=== PATIENT | female | born 1935 | race Caucasian/White ===

== ENCOUNTER 2024-08-08 10:50 | Outpatient (AMB) | payer OTHER, MEDICAID, SELFPAY ==
--- NOTE | 2024-08-08 11:22 | HO.SPINEOV ---
Intake Visit Reasons: low back pain Intake Note: Ms. Cornejo is here today c/o Low back pain. [employer] Required: No Allergies No Known Allergies Allergy (Verified 08/08/24 11:23) Assessment & Plan Assessment & Plan (1) Neck pain of over 3 months duration: Code(s): M54.2 - Cervicalgia Category: Medical Plan: Dear colleague Thank you for referring Aisha Cornejo to the office today with a chief complaint of neck pain and back pain. 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 Over the last 6 months she is experiencing progressive neck pain that is located on the base of her neck without radiation into her arms. The pain is worse when she abducts her right arm or with activity. Second complaint is back pain in the lumbar region that is worse in the morning and increases with activity. She denies radiation down her legs. She denies a relationship with walking or standing. No numbness or weakness in the extremities. No conservative treatments have tried. 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 Physical Exam: Pleasant female. She is able to move her neck in all directions without difficulty. There is pain on palpation over the left side of her neck. There is also pain on palpation of the lumbar region. Straight leg raise is negative. No neurological deficits for motor sensation or reflexes. Radiological Studies: An x-ray of the cervical spine shows mild degenerative changes. an x-ray of the lumbar spine shows osteopenia and degenerative changes. The hardware is in place. Impression/Plan: This 88-year-old female is suffering from neck pain and low back pain without radiculopathy. She has not tried any conservative measurements. I will refer to physical therapy in [place]. I spent 35 minutes in his consult to review imaging and to discuss plan of care Thank you for allowing me to participate in your patients care. Shakir Marin MD, PhD Spine Fellowship Trained Neurosurgeon Director, [facility] (2) Back pain with history of spinal surgery: Code(s): M54.9 - Dorsalgia, unspecified; Z98.890 - Other specified postprocedural states Category: Medical Plan: s Orders: Orders PT Evaluation and Treatment Today M54.2 - Cervicalgia, M54.9 - Dorsalgia, unspecified, Z98.890 - Other specified postprocedural states XR cervical spine 2V Today M54.2 - Cervicalgia XR lumbar spine 4V min Today M54.9 - Dorsalgia, unspecified, Z98.890 - Other specified postprocedural states Coding Level of Care Code New Pt Level 3 (45687) Diagnoses Neck pain of over 3 months duration M54.2 Back pain with history of spinal surgery M54.9; Z98.890
== END 2024-08-08 12:08 | disposition home or self-care (01) ==
PROVIDERS: Visit Provider Neurological Surgery
DX: M54.2 Cervicalgia (principal); M54.9 Dorsalgia, unspecified; Z98.890 Other specified postprocedural states
CPT/HCPCS: 99203

== ENCOUNTER 2024-08-08 10:50 | Outpatient (REF) | payer OTHER, SELFPAY ==
--- NOTE | ~2024-08-08 | XR_ITS ---
EXAMINATION: XR CERVICAL SPINE 2 VIEWS CLINICAL INFORMATION: Cervicalgia M54.2. COMPARISON: None available TECHNIQUE: Two views of the cervical spine were obtained. FINDINGS: Prevertebral soft tissue calcifications are present at the level of C3/4. No compression fractures or subluxations are identified. Lateral axial joint is not well visualized except on the lateral view. Multilevel degenerative changes are present, worst at C4-5 where there is approximately 2 mm anterolisthesis. Neural foramina cannot be evaluated due to lack of oblique views. No endplate changes are seen. The prevertebral soft tissues are normal. The foramina are patent. XR/XR cervical spine 2V IMPRESSION: Multilevel degenerative changes, poorly assessed on this study due to lack of oblique views. Minimal 2 mm anterolisthesis of C4 on C5. Prevertebral soft tissue calcifications at C3-4. Electronically signed by: Monroe Carrillo DO 10/09/2024 11:36 AM WILBER
--- NOTE | ~2024-08-08 | XR_ITS ---
EXAMINATION: XR LUMBAR SPINE 4 VIEWS CLINICAL INFORMATION: Dorsalgia, unspecified M54.9. COMPARISON: None TECHNIQUE: 4 views of lumbar spine were obtained. FINDINGS: 5 nonrib-bearing lumbar vertebral bodies. Bones are osteopenic. Grade 1 anterolisthesis of L4 and L5 with bilateral transpedicular screws. No perihardware lucency to suggest loosening. Multilevel facet arthropathy noted from L3 to L5. Extensive vascular calcifications. No compression deformity XR/XR lumbar spine 4V min IMPRESSION: Grade 1 anterolisthesis of L4 and L5. Bilateral transpedicular screws at L5 without complication. Multilevel facet arthropathy. Electronically signed by: Monroe Carrillo DO 10/09/2024 11:38 AM EST
== END 2024-08-08 10:51 | disposition home or self-care (01) ==
LOC: HO.HOSX 10:50
PROVIDERS: Visit Provider Neurological Surgery
DX: M54.2 Cervicalgia (principal); M54.9 Dorsalgia, unspecified; Z98.1 Arthrodesis status
CPT/HCPCS: 72040; 72110

== ENCOUNTER 2025-09-29 11:40 | Outpatient (REF) | payer OTHER, SELFPAY ==
--- OUTSIDE RECORDS SUMMARY | 2025-09-29 10:45 | XMS_ITS | Encounter Summary ---
Author Organization [employer] Address [address] [place] [address] [address] [place] [address] Care Team Providers Care Cooperage Shop Supervisor Name Role Phone Liz Trimble CNP Primary Care Provider [phone] Reason for Referral * Consultation (Routine) - Pending Review Specialty Diagnoses / Procedures Referred By Oleg joiner Referred To Contact Orthopaedic Surgery Diagnoses Chronic right shoulder pain Liz Trimble CNP [address] [place] [address] Phone: tel: fax: Referral ID Status Reason Start Date Expiration Date Visits Requested Visits Authorized [id number] Pending Review Specialty Services Required 09/29/2025 09/29/2026 1 1 Encounter Details Date Type Department Care Team (Late st Contact Info) Description 09/29/2025 10:45 AM EST Office Visit [facility] [address] [place] [address] Liz Trimble CNP [address] [place], [place] [id number] 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); Hypothyroidism, unspecified type; Moderate persistent asthma without complication; Elevated BP reading w/ no diagnosis of HTN; Chronic right shoulder pain; Overactive bladder; Encounter for immunization Social History Tobacco Use Types Packs/Day Years Used Date Smoking Tobacco: Never Smokeless Tobacco: Never Tobacco Cessation:Counseling Given: Not Answered Depression Answer Date Recorded Patient Health Questionnaire-9 Score 2 09/29/2025 Patient Health Questionnaire-9 Score 2 09/29/2025 Last PHQ-9: Questionnaire Data Not on file 1 2024 Housing Stability Answer Date Recorded What is your housing situation today? I have chemo bundy 09/29/[address] you li ve. Do you have problems with any of the following? None of the above 09/29/2025 Food Insecurity Answer Date Recorded Within the past 12 months, y ou worried that your food would run out before you got money to buy more: Never True 09/29/2025 Within the past 12 months,th e food you bought just didn't last and you didn't have enough money to get more: Never True 11/2024 Transportation Answer Date Recorded In the past 12 months, has l ack of transportation kept you from medical appts, meetings, work or from getting things needed for daily living? No 09/29/2025 Utilities Answer Date Recorded In the past 12 months, has t he electric, gas, oil or water company threatened to shut off services in your home? No 09/29/2025 Depression Answer Date Recorded Patient Health Questionnaire-2 Score 0 09/29/2025 Internet Access Answer Date Recorded Internet Access Q1 Yes 09/29/2025 Internet Access Q2 Not on file 09/29/2025 Comments No Sex and Gender Information Value Date Recorded Sex Assigned at Female 08/28/2022 10:39 AM EDT Legal Sex Female 10:39 AM EDT Gender Identity Choose not to disclose 10:39 AM EDT Sexual Orientation Choose not to disclose 2021 10:39 AM EDT documented as of this encounter Last Filed Vital Signs Vital Sign Reading Time Taken Comments Blood Pressure 180/74 09/29/2025 10:41 AM EST Pulse 84 09/29/2025 10:41 AM EST Temperature 36.2 C (97.1 F) 09/29/2025 10:41 AM EST Respiratory Rate 14 09/29/2025 10:41 AM EST Oxygen Saturation 97% 09/29/2025 10:41 AM EST Inhaled Oxygen Concentration - - Weight 64.9 kg (143 lb) 09/29/2025 10:41 AM EST Height 149.9 cm (4' 11 ) 09/29/2025 10:41 AM EST Body Mass Index 28.88 09/29/2025 10:41 AM EST documented in this encounter Functional Status * Over the past 2 weeks, how often have you been bothered by any of the following problems? Question Answer Date of Assessment Author Patient Health Questionnaire -2 Score 0 09/29/2025 11:44 AM Sa pacheco Camacho [place] * Little interest or pleasure in doing things Answer Date of Assessment Author Not at all 09/29/2025 11:44 AM Anni Alexander [place] * Feeling down, depressed, or hopeless Answer Date of Assessment Author Not at all 09/29/2025 11:44 AM Anni Alexander [place] * Trouble falling or staying asleep, or sleeping too much Answer Date of Assessment Author Not at all 09/29/2025 11:44 AM Anni Alexander MA * Feeling tired or having little energy Answer Date of Assessment Author More than half the days 09/29/2025 11:44 AM Anni Camacho MA * Poor appetite or overeating Answer Date of Assessment Author Not at all 09/29/2025 11:44 AM Anni Alexander MA * Feeling bad about yourself - or that you are a failure or have let yourself or your family down Answer Date of Assessment Author Not at all 09/29/2025 11:44 AM Anni Alexander MA * Trouble concentrating on things, such as reading the newspaper or watching television Answer Date of Assessment Author Not at all 09/29/2025 11:44 AM Anni Alexander MA * Moving or speaking so slowly that other people could have noticed? Or the opposite - being so fidgety or restless that you have been moving around a lot more than usual. Answer Date of Assessment Author Not at all 09/29/2025 11:44 AM Anni Alexander MA * Thoughts that you would be better off or hurting yourself in some way Answer Date of Assessment Author Not at all 09/29/2025 11:44 AM Anni Alexander MA * Patient Health Questionnaire-9 Score Answer Date of Assessment Author 2 09/29/2025 11:44 AM Anni Alexander MA * How difficult have these problems made it for you to do your work, take care of things at home, or get along with other people? Answer Date of Assessment Author Not difficult at all 09/29/2025 11:44 AM EST Anni Asencio MA documented as of this encounter Progress Notes * Liz Trimble CNP - 09/29/2025 10:45 AM EST Subjective: Aisha Cornejo is a 89 y.o. choose not to disclose with PMH of HLD, T2DM, Hypothyroidism, Osteopenia, OAB, WILIAM, depression, retinal occlusion, COPD with moderate persistent asthma, pulmonary emphysemawho presents to the office for a new patient visit. Previous PCP unknown. Interim history: Follows with [facility] 09/17/25- Kortney Shearer NP- see note from 09/17/25 for recent testing including PFTs and chest imaging. Current meds include Breo and albuterol prn. She uses nicotine patches for smoking cessation. She was advised to apply two patches for two weeks, then reduce toone. Prior to this, she smoked about 10 cigarettes daily. She reports she is still using the patches despite not finding them very effective. 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 TEODORA 05/19/25, per note recent labs showed normwl H/H and normal renal function and electrolytes. Plan for 1 yr f/u. Meds for T2DM include lipitor 40mg and metformin 500mg daily. She denies any episodes of hypoglycemia. She is on levo 100mcg for hypothyroid Pt has artificial R eye, she receives retina injections in [place] Dr. Pedersen - [facility] Health maintenance -needs updated labs -due for foot/eye exam -vaccines include flu covid, zoster, RSV, agrees to flu today. Current concerns: Chronic R shoulder pain related to a fall on her right side years ago. She reports trouble lifting arm above her head. Reports pain exacerbated by activity such as knitting. She has completed PT in the past. She uses tylenol for pain relief. No recent imaging on chart. Overactive bladder, this is an ongoing issue, previously followed by urology and was recommended todo pelvic floor PT, pt denies desire to do this. She does wear diapers for incontinence, she reports urinary leakage when going upstairs. She reports using the bathroom 3-4x nightly. Problem List[1] Surgical History[2] Family History[3] Social history -lives with her daughter and granddaughter and grandson in law -has 3 older children all involved, one son in [facility] -she is active is independent for most ADLS/IADLS besides bathing due to fall risk, she receives help from daughter -she likes to knit and do puzzles on her ipad in her free time. -she denies any concerns for anxiety/depression she does express some frustration when she is unable to do an activity she was once able to do. No LMP recorded (lmp unknown). Patient is postmenopausal. Allergies[4] Review of Systems Vitals: 09/29/25 1041 BP: (!) 180/74 BP Location: Left arm Patient Position: Sitting BP Cuff Size: Adult Pulse: 84 Resp: 14 Temp: 97.1 ??F (36.2 ??C) TempSrc: Oral SpO2: 97% Weight: 143 lb (64.9 kg) Height: 4' 11 (1.499 m) Physical Exam Vitals reviewed. Constitutional: General: Aisha is not in acute distress. Appearance: Normal appearance. Aisha is not ill-appearing, toxic-appearing or diaphoretic. HENT: Head: Normocephalic and atraumatic. Cardiovascular: Rate and Rhythm: Normal rate and regular rhythm. Pulses: Normal pulses. Heart sounds: Normal heart sounds. No murmur heard. No friction rub. No gallop. Pulmonary: Effort: Pulmonary effort is normal. No respiratory distress. Breath sounds: Normal breath sounds. No stridor. No wheezing, rhonchi or rales. Chest: Chest wall: No tenderness. Musculoskeletal: Right shoulder: No swelling, deformity, effusion, laceration, tenderness, bony tenderness or crepitus. Decreased range of motion. Normal strength. Normal pulse. Right lower leg: No edema. Left lower leg: No edema. Comments: Restricted ROM in abduction and forward flexion Neurological: General: No focal deficit present. Mental Status: Aisha is alert and oriented to person, place, and time. Mental status is at baseline. Psychiatric: Mood and Affect: Mood normal. Behavior: Behavior normal. Thought Content: Thought content normal. Judgment: Judgment normal. 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 Maintenance BMP: due, ordered Microalbumin: due, ordered Foot Exam: due, will complete at PE in 3 months Eye Exam: utd Lipid panel: due, ordered Statin: yes, refilled today ASA: no HARMONY/ARB: no Treatment Goals: A1c goal: <7% FBG goal: <130 2 hour post prandial goal: <180 Advised Low sugar and Low carb diet. Counseled regarding self-monitoring of blood glucose. Counseled re: potential co-morbidities including cardiovascular disease. Counseled re: potential co-morbidities include neuropathy and retinopathy. Counseled re: potential co-morbidities include nephropathy. Orders: CBC auto differential; Future Albumin, Random Urine W/Creatinine; Future Lipid Panel, Standard; Future Hemoglobin A1c; Future Comprehensive Metabolic Panel; Future POCT A1c POCT glucose manually resulted atorvastatin (Lipitor) 40 MG tablet; Take 1 tablet (40 mg) by mouth Once per day. 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 She will continue ongoing f/u with pulmonology Elevated BP reading w/ no diagnosis of HTN BP above goal >140/90 Home readings are stable in 120s/80s, pt is asymptomatic today Pt to continue working on smoking cessation Pt to focus on lifestyle modifications Chronic right shoulder pain Offered physical therapy, pt declines We will order baseline imaging, likely rotator cuff tendinopathy of R shoulder Advised tylenol, ice, rest, heat, activity modification Considered diclofenac gel pt not interested I will also refer to ortho for possible steroid inj Orders: XR Shoulder 2+ Views Right; Future Referral to Orthopaedic Surgery; Future Overactive bladder Will trial oxybutynin No contraindications to medication noted. Orders: oxybutynin XL (Ditropan-XL) 5 MG 24 hr tablet; Take 1 tablet (5 mg) by mouth Once per day. Do not crush, chew, or split. Encounter for immunization Agrees to flu She may have RSV and zoster at external pharmacy Orders: FLU VACCINE TRIVALENT HIGH DOSE (Fluzone) 65 yrs + Current Medications[5] Immunization History Administered Date(s) Administered Influenza High-dose Quadrivalent Preservative Free 07/20/2020 Influenza Quadrivalent Adjuvanted 07/30/2021, 07/16/2023 Influenza, High Dose Seasonal, Preservative Free 07/27/2016, 08/01/2017, 07/29/2018, 08/01/2019, 07/20/2020, 07/27/2022 Influenza, IIV3, injectable 08/27/2007, 10/01/2009, 08/02/2010 Influenza, Unspecified 08/01/2017, 07/29/2018, 08/01/2019, 07/23/2023 Influenza, seasonal, injectable, preservative free 08/27/2007 Influenza, trivalent, adjuvanted 10/01/2009, 08/02/2010, 07/27/2016, 08/01/2017, 07/29/2018, 08/01/2019, 07/20/2020, 07/27/2022 Pfizer Covid-19 Vaccine 12+ 02/03/2021, 02/24/2021, 11/03/2021 Pfizer Covid-19 Vaccine 12+ Bivalent 10/17/2022 Pneumococcal Conjugate PCV 20 08/02/2023 Pneumococcal Polysaccharide PPSV23 12/31/2007 TD (adult), 2 Lf tetanus toxoid, preservative free, adsorbed 04/01/2010, 04/01/2010 Tdap 04/01/2010, 07/27/2016 No follow-ups on file. 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 [3] No family history on file. [4] Allergies Allergen Reactions Aspartame Hives Other reaction(s): Hives/Urticaria Fluticasone-Salmeterol Hives and Other Gets mouth prickly. Metronidazole Hives and Other Stomach pain and mouth feels picky Other Reaction(s): Other (See Comments) Stomach pain and mouth feels picky Molds & Smuts Other reaction(s): Not available Other reaction(s): Not available Other reaction(s): Not available Other reaction(s): Not available Other reaction(s): Not available Other Other Reaction(s): aspertame - hives [5] Current Outpatient Medications Medication Sig Dispense Refill albuterol 108 (90 Base) MCG/ACT inhaler USE 2 INHALATIONS BY MOUTH EVERY 4 HOURS NEEDED FOR COUGH OR WHEEZING OR SHORTNESS OF BREATH RESCUE USE ONLY cefuroxime (Ceftin) 500 MG tablet D3-1000 25 MCG (1000 UT) capsule Take 1 capsule by mouth Once per day. Docusate Sodium (DSS) 100 MG capsule Take 100 mg by mouth 2 times daily. fluticasone (Flonase) 50 MCG/ACT nasal spray 2 sprays Once per day. fluticasone furoate (Arnuity Ellipta) 100 MCG/ACT inhaler Inhale 1 puff Once per day. ipratropium (Atrovent) 0.03 % nasal spray Administer 2 sprays into each nostril every 12 (twelve) hours. acetaminophen (Tylenol Dissolve Pack) 500 MG pack packet Take 2 tablets by mouth every 8 (eight) hours. atorvastatin (Lipitor) 40 MG tablet Take 40 mg by mouth Once per day. levothyroxine (Synthroid, Levoxyl) 100 MCG tablet Take 100 mcg by mouth Once per day. metFORMIN (Glucophage) 500 MG tablet Take 500 mg by mouth with breakfast. No current facility-administered medications for this visit. 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 Maintenance BMP: due, ordered Microalbumin: due, ordered Foot Exam: due, will complete at in 3 months Eye Exam: utd Lipid panel: due, ordered Statin: yes, refilled today ASA: no HARMONY/ARB: no Treatment Goals: A1c goal: <7% FBG goal: <130 2 hour post prandial goal: <180 Advised Low sugar and Low carb diet. Counseled regarding self-monitoring of blood glucose. Counseled re: potential co-morbidities including cardiovascular disease. Counseled re: potential co-morbidities include neuropathy and retinopathy. Counseled re: potential co-morbidities include nephropathy. Orders: CBC auto differential; Future Albumin, Random Urine W/Creatinine; Future Lipid Panel, Standard; Future Hemoglobin A1c; Future Comprehensive Metabolic Panel; Future POCT A1c POCT glucose manually resulted atorvastatin (Lipitor) 40 MG tablet; Take 1 tablet (40 mg) by mouth Once per day. * Assessment & Plan Note - Liz Trimble CNP - 09/29/2025 10:45 AM EST Associated Problem(s): Hypothyroid Compliant with medications No new symptoms or concerns with disease progression Will obtain updated thyroid labs * Assessment & Plan Note - Liz Trimble CNP - 09/29/2025 10:45 AM EST Associated Problem(s): Moderate persistent asthma without complication Controlled on current medications: Arnuity Ellipta, Advair Diskus, Breo ellipta, and albuterol as needed. 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) Expected: 09/29/2025 (Approximate), Expires: 09/29/2026 Hemoglobin A1c Lab Routine 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) Expected: 09/29/2025 (Approximate), Expires: 09/29/2026 Comprehensive Metabolic Panel Lab Routine 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 Author Help patients manage their type 2 diabetes Care Plan Help patients manage their type 2 diabetes No Anni Hope MA Patient has diabetic eye disease Care Plan Patient has diabetic eye disease No Anni Hope MA Help patients manage their type 2 diabetes Care Plan Help patients manage their type 2 diabetes No Anni Hope MA Patient has chronic kidney disease Care Plan Patient has chronic kidney disease No Anni Hope [place] Patient has diabetic eye disease Care Plan Patient has diabetic eye disease No Anni Hope [place] Patient has chronic kidney disease Care Plan Patient has chronic kidney disease No Anni Hope MA Patient has diabetic eye disease Care Plan Patient has diabetic eye disease No Anni Hope MA Patient has diabetic eye disease Care Plan Patient has diabetic eye disease No Anni Hope [place] Patient has chronic kidney disease Care Plan Patient has chronic kidney disease No Anni Hope MA Patient has chronic kidney disease Care Plan Patient has chronic kidney disease No Anni Hope MA documented as of this encounter Procedures Procedure Name Priority Date/Time Associated Diagnosis Comments POCT GLYCATED HEMOGLOBIN, TOTAL Routine 09/29/2025 10:52 AM EST 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) POCT GLUCOSE Routine 09/29/2025 10:51 AM EST 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) documented in this encounter Results * (ABNORMAL) POCT A1c (09/29/2025 10:52 AM EST) Hemoglobin A1C 5.8(A) 4.0 - 5.7 % QC Media Lot # Comment:[id number] Lot# Expiration Date Comment:10/02/2027 Blood 09/29/2025 10:5 2 AM EST Result [facility] POINT OF CARE TEST ENTER/ EDIT ORDERABLES Final Result * POCT glucose manually resulted (09/29/2025 10:51 AM EST) Glucose Blood, POC 97 60 - 200 mg/dL Media Lot # Comment:[id number] Lot# Expiration Date Comment:02/02/2027 Blood Capillary blood specimen / Unknown 09/29/2025 10:51 AM EST [facility] POINT OF CARE TEST ENTER/ EDIT ORDERABLES Final Result documented in this encounter Visit Diagnoses Diagnosis 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)- Primary Hypothyroidism, unspecified type Moderate persistent asthma without complication Elevated BP reading w/ no diagnosis of HTN Chronic right shoulder pain Pain in joint, shoulder region Overactive bladder Hypertonicity of bladder Encounter for immunization documented in this encounter Additional Health Concerns Active Problems Noted Date Diagnosed Date Help patients manage their type 2 diabetes 09/28 Patient has diabetic eye disease 09/28/2025 Help patients manage their type 2 diabetes 09/28 Patient has chronic kidney disease 09/28/2025 Patient has diabetic eye disease 09/28/2025 Patient has chronic kidney disease 09/28/2025 Patient has diabetic eye disease 09/28/2025 Patient has diabetic eye disease 09/28/2025 Patient has chronic kidney disease 09/28/2025 Patient has chronic kidney disease 09/28/2025 Assessment Noted Time PHQ-9 Depression Total Score: 2 09/29/20 11:44 AM EST documented as of this encounter Care Teams [employer] Shop Supervisor Relationship Specialty Start Date End Date Liz Trimble CNP [address] [place] [id number] PCP - General Family Medicine 09/29/25 documented as of this encounter
--- OUTSIDE RECORDS SUMMARY | 2025-09-29 13:55 | XMS_ITS | Encounter Summary ---
Author Organization [facility] Address [address] [place] [address] Care Team Providers Care Public Works Inspector Name Role Phone Jameson Patel MD Primary Care Provider [phone] Reason for Visit * Reason Onset Date Comments Medication Problem 09/22/2025 Encounter Details Date Type Department Care Team ([facility] st Contact Info) Description 09/22/2025 Telephone Pulmonology - [place] [address] [facility] [address] [place] [address] Kortney Shearer NP [address] [place] [address] Social History Tobacco Use Types Packs/Day Years Used Date Smoking Tobacco: Every Day Cigarettes Comments:Smoke 10 cigarettes a day Alcohol Use Standard Drinks/Week Comments Never 0 (1 standard drink = 0.6 oz pur e alcohol) Comments Unknown Sex and Gender Information Value Date Recorded Sex Assigned at Female 11/07/2024 10:32 AM EST Legal Sex Female 11:25 AM EST Gender Identity Female 11/07/2024 10:32 AM EST Sexual Orientation Straight 11/07/2024 10 :32 AM EST documented as of this encounter Progress Notes * Sameera Wang MA - 09/22/2025 9:21 AM EST Printed and given to ANCA * Tonia Shea - 09/22/2025 9:02 AM EST Pharmacy fax received requesting clarification for allergy to Corticosteroids ( fluticasone propion-salmeterol) . Patient was prescribed flonase nasal spray 50 mcg. Attached to encounter documented in this encounter Plan of Treatment Upcoming Encounters Date Type Department Care Team ([facility] st Contact Info) Description 11/17/2025 10:10 AM EST Office Visit Pulmonology - [place] [address] [facility] [address] [place] [phone] Kortney Shearer NP [address] [place] [address] 05/31/2026 11:30 AM EDT Office Visit [facility] Hematology Oncology [address] [place] [phone] Gerber Tamez MD [address] [place] [address] documented as of this encounter Visit Diagnoses Not on filedocumented in this encounter Care Teams Public Works Inspector Relationship Specialty Start Date End Date Jameson Patel MD [address] [facility] [address] [place] [address] PCP - General 07/23/24 documented as of this encounter
--- OUTSIDE RECORDS SUMMARY | 2025-09-29 13:55 | XMS_ITS | Encounter Summary ---
Author Organization [email or web address] Address [address] [place] [address] [address] [place] [address] Care Team Providers Care Chiropractor Sole Practitioner Name Role Phone Liz Trimble CNP Primary Care Provider [phone] Reason for Visit * Reason Onset Date Comments New Patient 08/17/2025 Encounter Details Date Type Department Care Team ([facility] st Contact Info) Description 08/17/2025 Telephone [facility] MEDICINE [address] [place], [place] [phone] Jeffery Manjarrez MD [address] [place], [place] [phone] New Patient Social History Tobacco Use Types Packs/Day Years Used Date Smoking Tobacco: Never Assessed Comments Unknown Sex and Gender Information Value Date Recorded Sex Assigned at Female 08/28/2022 10:39 AM EDT Legal Sex Female 10:39 AM EDT Gender Identity Choose not to disclose 10:39 AM EDT Sexual Orientation Choose not to disclose 2021 10:39 AM EDT documented as of this encounter Miscellaneous Notes * Telephone Encounter - Domo Yarbrough - 08/17/2025 12:09 PM EDT TC from caller requesting NEW PATIENT visit . Insurance name: [facility] Location: [facility] Demographic information updated documented in this encounter Plan of Treatment Not on file documented as of this encounter Visit Diagnoses Not on filedocumented in this encounter Care Teams Chiropractor Sole Practitioner Relationship Specialty Start Date End Date Liz Trimble CNP [address] [facility] [place] [id number] PCP - General Family Medicine 09/29/25 documented as of this encounter
--- OUTSIDE RECORDS SUMMARY | 2025-09-29 13:56 | XMS_ITS | Clinical Summary ---
Author Organization [email or web address] Address [address] [place] [address] [address] [place] [address] Care Team Providers Care Turning And Beading Machine Operator Name Role Phone Liz Trimble CYCLE REPAIRER Primary Care Provider [phone] Allergies Active Allergy Reactions Criticality Noted Date Comments Aspartame Hives 01/02/2014 Other reaction(s): Hives/Urticaria Fluticasone-Salmeterol Hives,Other 11/04/2024 Gets mouth prickly. Metronidazole Hives,Other 03/02/2016 Stomach pain and mouth feels picky Other Reaction(s): Other (See Comments) Stomach pain and mouth feels picky Molds & Smuts 09/12/2023 Other reaction(s): Not available Other reaction(s): Not available Other reaction(s): Not available Other reaction(s): Not available Other reaction(s): Not available Other 09/28/2025 Other Reaction(s): aspertame - hives Medications acetaminophen (Tylenol Dissolve Pack) 500 MG pack packet Take 2 tablets by mouth every 8 (eight) hours. Active albuterol 108 (90 Base) MCG/ACT inhaler USE 2 INHALATIONS BY MOUTH EVERY 4 HOURS NEEDED FOR COUGH OR WHEEZING OR SHORTNESS OF BREATH RESCUE USE ONLY 07/30/20 25 Active cefuroxime (Ceftin) 500 MG tablet 06/04/20 25 Active D3-1000 25 MCG (1000 UT) capsule Take 1 capsule by mouth Once per day. 07/07/20 25 Active Docusate Sodium (DSS) 100 MG capsule Take 100 mg by mouth 2 times daily. 04/25/20 21 Active fluticasone furoate (Arnuity Ellipta) 100 MCG/ACT inhaler Inhale 1 puff Once per day. 09/17/20 25 026 Active fluticasone (Flonase) 50 MCG/ACT nasal spray 2 sprays Once per day. 09/17/20 25 Active ipratropium (Atrovent) 0.03 % nasal spray Administer 2 sprays into each nostril every 12 (twelve) hours. 09/17/20 25 Active levothyroxine (Synthroid, Levoxyl) 100 MCG tablet Take 100 mcg by mouth Once per day. Active metFORMIN (Glucophage) 500 MG tablet Take 500 mg by mouth with breakfast. Active Advair Diskus 250-50 MCG/ACT aerosol powder INHALE 1 PUFF BY MOUTH TWICE DAILY. RINSE MOUTH WITH WATER AFTER USE FOR AFTERTASTE AND INCIDENCE OF CANDIDIASIS. DO NOT SWALLOW Active Fluticasone Furoate-Vilant nalini 100-25 MCG/ACT aerosol powder Inhale 1 puff Once per day. 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 30 tablet 3 5 12:17 PM EST 09/29/20 25 Active oxybutynin XL (Ditropan-XL) 5 MG 24 hr tabletIndicati ons:Overactive bladder Take 1 tablet (5 mg) by mouth Once per day. Do not crush, chew, or split. 30 tablet 11 5 12:17 PM EST 09/29/20 25 026 Active atorvastatin (Lipitor) 40 MG tablet Take 40 mg by mouth Once per day. 025 Discontinued(R eorder (will not trigger notification to Pharmacy)) Active Problems Problem Noted Date Diagnosed Date Exacerbation of asthma 09/28/2025 Moderate persistent asthma without complication 11/09/2024 Assessment & Plan (09/29/2025 12:02 PM EST): Controlled on current medications: Arnuity Ellipta, Advair Diskus, Breo ellipta, and albuterol as needed. 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 The 30-day monitor showed no A. fib her echo shows nothing but atheroma of the aortic arch. 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 The treatment for this is to quit smoking stabilize her cholesterol and continue aspirin she is on all of these right now unfortunately no further intervention is necessary or available. She is having no anginal symptoms no other cardiovascular symptoms whatsoever I explained to her the pathophysiology of the retinal artery occlusion the reason for doing the monitoring and the echo. And the reason to continue the present medical management. 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 Last Assessment & Plan: Checking Your Blood Sugars Please check your blood sugars every day. Please check your sugars at the following times of day: before breakfast and before bedtime Your Blood Sugar Goals Pre Meal: 90-130 2 hours after meals: 110-160 Bedtime: 110-150 Use the Results Bring your glucometer to every appointment Write your fingerstick blood sugars down on a log sheet or record book. Bring them to your appointment Look for patterns in the numbers. The results help you and your provider make decisions about your diabetes treatment plan. Your Results and your Goals Your Result / Date of Completion Your Goal / How Often to Assess Component Value Date HGBA1C 6.0 08/05/2014 Less than 7% --- 2-4 times per year BP Readings from Last 1 Encounters: 08/12/14 130/66 Less than 140/90 --- once per year Component Value Date MALBCR 6 04/05/2014 Less than 30 --- once per year Component Value Date LDL 97 12/05/2013 Less than 100 --- once per year Wt Readings from Last 1 Encounters: 08/12/14 151 lb (68.493 kg) Your goal weight by next visit: 150lb --- reassess 2-4 times a year Health Maintenance Due Topic Date Due ? Adult Immunization: Tetanus Diptheria And Pertussis (Tdap) 1956 ? Adult Immunization: Zostavax For Patients Over 60 1997 ? Mammogram 12/26/2012 ? Diabetes: Annual Foot Exam 09/02/2013 ? Flu Shot 06/29/2014 ? Diabetes: Annual Care Plan 08/08/2014 Your Action Plan Your diabetes is well controlled and no changes are required to your current plan. Check blood glucose as directed and write down all results. Contact me if you experience any barriers to care such as inability to purchase your medication, difficulty getting to your appointments or difficulty understanding your care plan When to Call your Healthcare Provider If your blood sugar falls below 70 and you do not know why or you become unconscious If you are sick and unable to take liquids because or nausea or vomiting If you have a fever over 101 If your blood sugar is 300 or higher on greater than 3 separate occasions during the same week If you are just unsure what to do Educational Resources [place] [employer] (www.diabetes.org) Centers for Disease Control and Prevention (www.cdc.gov/diabetes) This care plan was created in collaboration with Aisha Cornejo on 08/12/2014 Assessment & Plan (09/29/2025 12:02 PM EST): Lab Results Component Value Date HGBA1C 5.8 [...] (40 mg) by mouth Once per day. OAB (overactive bladder) 08/14/2011 Overview (09/28/2025): Follows with Dr. Sellers Hypothyroid 10/01/2007 Assessment & Plan (09/29/2025 12:02 PM EST): Compliant with medications No new symptoms or concerns with disease progression Will obtain updated thyroid labs Asthmatic bronchitis 08/27/2007 Hyperlipemia 08/22/2007 Resolved Problems Problem Noted Date Diagnosed Date Resolved Date Smoking addiction 11/09/2024 09/29/2025 Tobacco abuse 04/25/2021 09/29/2025 Candidal intertrigo 06/10/2012 09/29/20 25 Overview (09/28/2025): Inframammary areas b/l Encounters Date Type Department Care Team Description 09/29/2025 10:45 AM EST Office Visit 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 MED & PEDS [address] [place] [address] Anni Hope MA chart prep 09/17/2025 Patient Outreach [facility] MEDICINE [address] [place] [address] Jeffery Manjarrez MD Pre-visit Planning (SDOH screening unable to complete) 08/18/2025 Telephone [facility] MEDICINE [address] [place] [address] Jeffery Manjarrez MD 08/17/2025 Telephone [facility] [address] [facility] [place] [address] Jeffery Manjarrez MD New Patient 08/12/2025 Telephone [facility] INS ENROLLMENT [address] [place] [address] Dorcas Call MD from Last 3 Months Immunizations Immunization Administration Dates Next Due Influenza High-dose Quadriva lent Preservative Free 07/20/2020 Influenza Quadrivalent Adjuvanted 07/16/2023,11/2020 Influenza, High Dose Seasona l, Preservative Free 09/29/2025,07/27/2022,07/20/2020,08/01,07/29/2018,08/01/2017,07/27/2016 Influenza, IIV3, injectable 08/02/2010, 9,08/27/2007 Influenza, Unspecified 07/23/2023,2018,07/29/2018,08/01 Influenza, seasonal, injecta ble, preservative free 08/27/2007 Influenza, trivalent, adjuvanted 022,07/20/2020,08/01/2019,07/29,08/01/2017,07/27/2016,08/02/2010 ,10/01/2009 Pfizer Covid-19 Vaccine 12+ Bivalent 10/17/2022 Pneumococcal Conjugate PCV 20 08/02/2023 Pneumococcal Polysaccharide PPSV23 12/31/2007 TD (adult), 2 Lf tetanus tox oid, preservative free, adsorbed 04/01/2010,04/01/2010 Tdap 07/27/2016,04/01/2010 Social History Tobacco Use Types Packs/Day Years [...] not to disclose 2021 10:39 AM EDT Last Filed Vital Signs Vital Sign Reading [...] Mass Index 28.88 09/29/2025 10:41 AM EST Plan of Treatment Health Maintenance Due Date Last Done Comments Lipid Panel 1937 Diabetes: Foot Exam 1947 Eye Exam 1945 Diabetes: Urine Protein Screening 1954 Zoster Vaccines (1 of 2) 1987 RSV Patients and Patients Aged 60 years or older (1 - 1-dose 75+ series) 2012 COVID-19 Vaccine ( - season) 2025 10/17/2022, 11/03/2021, 02/24/2021, Additional history exists Diabetes: Hemoglobin A1C 03/30/2026 09/29/2025, 05/1 11/2024 DTaP/Tdap/Td Vaccines (5 - Td or Tdap) 07/27/2026 07/27/2016, 04/01/2010, 04/01/2010, Additional history exists Alcohol/Substance Use Screening 09/29/2026 09/29/2025 Depression Screening 09/29/2026 09/29/2025, 09/29/20 SDOH Screening 09/29/2026 09/29/2025 Tobacco Screening 09/29/2026 09/29/2025 Pneumococcal Vaccine: 50+ Years Completed 08/02/2023, 12/31/2007 Influenza Vaccine Completed 09/29/2025, , 07/16/2023, Additional history exists HIB Vaccines Aged Out No longer eligi ble based on patient's age to complete this topic HPV Vaccines Aged Out No longer eligi ble based on patient's age to complete this topic Hepatitis A Vaccines Aged Out No long er eligible based on patient's age to complete this topic Hepatitis B Vaccines Aged Out No long er eligible based on patient's age to complete this topic IPV Vaccines Aged Out No longer eligi ble based on patient's age to complete this topic Meningococcal B Vaccine Aged Out No l onger eligible based on patient's age to complete this topic Meningococcal Vaccine Aged Out No lorena angelica eligible based on patient's age to complete this topic RSV under 20 months Aged Out No longe r eligible based on patient's age to complete this topic Rotavirus Vaccines Aged Out No longer eligible based on patient's age to complete this topic Goals Goal Patient Goal Type Associated Problems [...] Plan Patient has diabetic eye disease No CourtneyKyle Anni [place] Patient has diabetic eye disease Care Plan Patient has diabetic eye disease No JimenezMariama Anni [place] Patient has chronic kidney disease Care Plan Patient has chronic kidney disease No CourtneyKyle [place]CA [place] Patient has chronic kidney disease Care Plan Patient has chronic kidney disease No CourtneyKyle ANCA [place] Procedures Procedure Name Priority Date/Time Associated Diagnosis Comments POCT GLYCATED HEMOGLOBIN, TOTAL Routine 09/29/2025 10:52 AM EST 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) POCT GLUCOSE Routine 09/29/2025 10:51 AM EST 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) from Last 3 Months Results * (ABNORMAL) POCT A1c (09/29/2025 10:52 AM EST) Hemoglobin A1C 5.8(A) 4.0 - 5.7 % QC Media Lot # Comment:[id number] Lot# Expiration Date Comment:10/02/2027 Blood 09/29/2025 10:5 2 AM EST Result [facility] POINT OF CARE TEST ENTER/ EDIT ORDERABLES Final Result * POCT glucose manually resulted (09/29/2025 10:51 AM EST) Glucose Blood, POC 97 60 - 200 mg/dL QC Media Lot # Comment:[id number] Lot# Expiration Date Comment:02/02/2027 Blood Capillary blood specimen / Unknown 09/29/2025 10:51 AM EST Result [facility] POINT OF CARE TEST ENTER/ EDIT ORDERABLES Final Result from Last 3 Months Additional Health Concerns Active Problems Noted Date [...] 09/28/2025 Patient has chronic kidney disease 09/28/[address] [place] [phone] [facility] [address] Care Teams Turning And Beading Machine Operator Relationship Specialty Start Date End Date Liz Trimble CNP [address] [place] [address] [place] [phone] PCP - General Family Medicine 09/29/25
--- OUTSIDE RECORDS SUMMARY | 2025-09-29 13:56 | XMS_ITS | Encounter Summary ---
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 Name Role Phone Jameson Patel MD Primary Care Provider [phone] Encounter Details Date Type Department Care Team (Late Contact Info) Description 03/09/2025 Lab Requisition [facility] - Main Lab [address] [facility] [place] [phone] Alin Gardner PA [address] [facility] [address] [place] [address] 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; Chronic fatigue, unspecified; Encounter for screening for diabetes mellitus Social History Tobacco Use Types Packs/Day Years [...] AM EST documented as of this encounter Plan of Treatment Upcoming Encounters Date Type Department Care Team (Late Contact Info) Description 11/17/2025 10:10 AM EST Office Visit Pulmonology - [place] [address] [facility] [address] [place] [phone] Kortney Shearer NP [address] [place] [address] 05/31/2026 11:30 AM EDT Office Visit [facility] Hematology Oncology [address] [place] [phone] Gerber Tamez MD [address] [place] [address] documented as of this encounter Procedures Procedure Name Priority Date/Time Associated Diagnosis Comments URINALYSIS WITH REFLEX MICROSCOPIC Routine 03/09/2025 12:00 AM EDT 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 Chronic fatigue, unspecified Encounter for screening for diabetes mellitus SST - GOLD Routine 03/09/2025 12:00 AM EDT 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 Chronic fatigue, unspecified Encounter for screening for diabetes mellitus LIPID PANEL WITH REFLEX TO DIRECT LDL Routine 03/09/2025 12:00 AM EDT 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 Chronic fatigue, unspecified Encounter for screening for diabetes mellitus URINALYSIS WITH REFLEX MICROSCOPIC Routine 03/09/2025 12:00 AM EDT 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 Chronic fatigue, unspecified Encounter for screening for diabetes mellitus CBC WITH AUTO DIFFERENTIAL Routine 03/09/2025 12:00 AM EDT 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 Chronic fatigue, unspecified Encounter for screening for diabetes mellitus VITAMIN D 25 HYDROXY Routine 03/09/2025 12:00 AM EDT 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 Chronic fatigue, unspecified Encounter for screening for diabetes mellitus CBC AND DIFFERENTIAL Routine 03/09/2025 12:00 AM EDT 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 Chronic fatigue, unspecified Encounter for screening for diabetes mellitus THYROID STIMULATING HORMONE Routine 03/09/2025 12:00 AM EDT 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 Chronic fatigue, unspecified Encounter for screening for diabetes mellitus THYROXINE FREE Routine 03/09/2025 12:00 AM EDT 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 Chronic fatigue, unspecified Encounter for screening for diabetes mellitus HEMOGLOBIN A1C Routine 03/09/2025 12:00 AM EDT 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 03/09/2025 8:01 PM EDT [facility] Comment:Auto resulted. Blood Venous blood specimen / Unknown 03/09/2025 03/09/2025 6:36 PM EDT us Alin BARAHONA LAB BLOOD ORDERABLES Final Res ult [facility] [address] [place] [address], [place] [phone] * (ABNORMAL) Urinalysis with reflex microscopic (03/09/2025 12:00 AM EDT) Specific [place] Urine 1.013 1.003 - 1.030 LAB URINALYSIS - AUTOMATED METHOD 03/09/2025 6:58 PM EDT [facility] pH, Urine 6.5 5.0 - 8.0 pH LAB URINALYSIS - AUTOMATED METHOD 03/09/2025 6:58 PM EDT [facility] Leukocytes, Urine Moderate(A) Negative LAB URINALYSIS - AUTOMATED METHOD 03/09/2025 6:58 PM [facility] Nitrite, Urine Positive(A) Negative LAB URINALYSIS - AUTOMATED METHOD 03/09/2025 6:58 PM [facility] Protein, Urine Trace <=Trace mg/dL LAB URINALYSIS - AUTOMATED METHOD 03/09/2025 6:58 PM [facility] Glucose, Urine Negative Negative mg/dL LAB URINALYSIS - AUTOMATED METHOD 03/09/2025 6:58 PM [facility] Ketones, Urine Negative Negative mg/dL LAB URINALYSIS - AUTOMATED METHOD 03/09/2025 6:58 PM [facility] Urobilinogen , Urine 0.2 0.2 - 1.0 mg/dL LAB URINALYSIS - AUTOMATED METHOD 03/09/2025 6:58 PM [facility] Bilirubin, Urine Negative Negative LAB URINALYSIS - AUTOMATED METHOD 03/09/2025 6:58 PM [facility] Blood, Urine Negative Negative LAB URINALYSIS - AUTOMATED METHOD 03/09/2025 6:58 PM [facility] RBC, Urine 1.2 0 - 4 /HPF LAB URINALYSIS - AUTOMATED METHOD 03/09/2025 6:58 PM [facility] WBC, Urine 28.6(H) 0 - 4 /HPF LAB URINALYSIS - AUTOMATED METHOD 03/09/2025 6:58 PM [facility] Squamous Epithelial, Urine 75(H) 0 - 60 /LPF LAB URINALYSIS - AUTOMATED METHOD 03/09/2025 6:58 PM [facility] Bacteria, Urine Many(A) Negative /HPF LAB URINALYSIS - AUTOMATED METHOD 03/09/2025 6:58 PM [facility] Hyaline Casts, Urine 2.0 0 - 3 /LPF LAB URINALYSIS - AUTOMATED METHOD 03/09/2025 6:58 PM EDT [facility] Urine Urine specimen obtained by clean catch procedure / Unknown 03/09/2025 03/09/2025 6:36 PM EDT Alin BARAHONA LAB URINE ORDERABLES Final Res ult [facility] [address] [place] [address], * CBC auto differential (03/09/2025 12:00 AM EDT) WBC 6.4 4.8 - 10.8 K/mcL LAB HEMETOLOGY METHOD 03/09/2025 6:47 PM EDT [facility] RBC 4.10 3.80 - 4.80 M/mcL LAB HEMETOLOGY METHOD 03/09/2025 6:47 PM EDT [facility] Hemoglobin 11.7 11.5 - 16.0 g/dL LAB HEMETOLOGY METHOD 03/09/2025 6:47 PM EDT [facility] Hematocrit 36.6 35.0 - 47.0 % LAB HEMETOLOGY METHOD 03/09/2025 6:47 PM EDT [facility] MCV 89.3 79.0 - 98.0 FL LAB HEMETOLOGY METHOD 03/09/2025 6:47 PM EDT [facility] MCH 28.5 27.0 - 32.0 pcg LAB HEMETOLOGY METHOD 03/09/2025 6:47 PM EDT [facility] MCHC 32.0 32.0 - 37.0 g/dL LAB HEMETOLOGY [facility] RDW 15.0 11.0 - 15.0 % LAB HEMETOLOGY METHOD 03/09/2025 6:47 [facility] Platelets 281 130 - 400 K/mcL LAB HEMETOLOGY METHOD 03/09/2025 6:47 PM EDT [facility] MPV 10.2 7.0 - 11.0 FL LAB HEMETOLOGY METHOD 03/09/2025 6[facility]47 [facility] NRBC 0.0 <1.0 % LAB HEMETOLOGY METHOD 03/09/2025 6:47 [facility] NRBC Absolute 0.00 <0.10 K/mcL LAB HEMETOLOGY METHOD 03/09/2025 6:47 [facility] Neutrophils Relative 60.5 % LAB HEMETOLOGY METHOD 03/09/2025 6:47 [facility] Lymphocytes Relative 23.8 % LAB HEMETOLOGY METHOD 03/09/2025 6:47 PM [facility] Monocytes Relative 8.1 % LAB HEMETOLOGY METHOD 03/09/2025 6:47 PM [facility] Eosinophils Relative 6.2 % LAB HEMETOLOGY METHOD 03/09/2025 6:47 PM [facility] Basophils Relative 1.1 % LAB HEMETOLOGY METHOD 03/09/2025 6:47 PM [facility] Immature Granulocytes Relative 0.3 % LAB HEMETOLOGY METHOD 03/09/2025 6:47 PM [facility] Neutrophils Absolute 3.89 1.50 - 7.00 K/mcL LAB HEMETOLOGY METHOD 03/09/2025 6:47 [facility] Lymphocytes Absolute 1.53 1.00 - 5.00 K/mcL LAB HEMETOLOGY METHOD 03/09/2025 6:47 [facility] Monocytes Absolute 0.52 0.20 - 1.00 K/mcL LAB HEMETOLOGY METHOD 03/09/2025 6:47 PM [facility] Eosinophils Absolute 0.40 0.00 - 0.50 K/mcL LAB HEMETOLOGY METHOD 03/09/2025 6:47 PM EDT [facility] Basophils Absolute 0.07 0.00 - 0.20 K/[facility] LAB HEMETOLOGY METHOD 03/09/2025 6:47 PM EDT [facility] Immature Granulocytes Absolute 0.02 0.00 - 0.03 K/[facility] LAB HEMETOLOGY METHOD 03/09/2025 6:47 PM EDT [facility] Blood Venous blood specimen / Unknown 03/09/2025 03/09/2025 6:36 PM EDT us Alin BARAHONA LAB BLOOD ORDERABLES Final Res ult Performing Organization Address City/[facility]/ZIP Co de Phone Number [facility] [address] [place] [address], [place] [phone] * (ABNORMAL) Vitamin D 25 hydroxy (03/09/2025 12:00 AM EDT) Vit D, 25-Hydroxy 29.6(L) 30.0 - 80.0 ng/mL LAB CHEMISTRY METHOD 03/09/2025 7:25 PM EDT [facility] Blood Venous blood specimen / Unknown 03/09/2025 03/09/2025 6:36 PM EDT us Alin BARAHONA LAB BLOOD ORDERABLES Final Res ult [facility] [address] [place] [address], [place] [phone] * (ABNORMAL) Thyroid stimulating hormone (03/09/2025 12:00 AM EDT) TSH 36.84(H) 0.40 - 4.00 mcIU/mL LAB CHEMISTRY METHOD 03/09/2025 7:26 PM EDT [facility] Blood Venous blood specimen / Unknown 03/09/2025 03/09/2025 6:36 PM EDT Alin BARAHONA LAB BLOOD ORDERABLES Final Res ult [facility] [address] [place] [address], [place] [phone] * Hemoglobin A1c (03/09/2025 12:00 AM EDT) Hemoglobin A1C 6.3 <6.5 % LAB CHEMISTRY METHOD 03/09/2025 10:22 PM EDT [facility] Mean Bld Glu Estim. 134 mg/dL LAB CHEMISTRY METHOD 03/09/2025 10:22 PM EDT [facility] Blood Venous blood specimen / Unknown 03/09/2025 03/09/2025 6:36 PM EDT us Alin BARAHONA LAB BLOOD ORDERABLES Final Res ult Performing Organization Address City/[facility]/ZIP Co de Phone Number [facility] [address] [place] [address], [place] [phone] * Thyroxine free (03/09/2025 12:00 AM EDT) Free T4 0.89 0.70 - 1.80 ng/dL LAB CHEMISTRY METHOD 03/09/2025 7:26 PM EDT [facility] Blood Venous blood specimen / Unknown 03/09/2025 03/09/2025 6:36 PM EDT Alin BARAHONA LAB BLOOD ORDERABLES Final Res ult [facility] [address] [place] [address], [place] [phone] * Vitamin B12 (03/09/2025 12:00 AM EDT) Vitamin B-12 406 250 - 900 pcg/mL LAB CHEMISTRY METHOD 03/09/2025 7:29 PM EDT [facility] Blood Venous blood specimen / Unknown 03/09/2025 03/09/2025 6:36 PM EDT Alin BARAHONA LAB BLOOD ORDERABLES Final Res ult [facility] [address] [place] [address], [place] [phone] * Lipid panel with reflex to direct LDL (03/09/2025 12:00 AM EDT) [facility] Cholesterol 152 0 - 200 mg/dL LAB CHEMISTRY METHOD 03/09/2025 7:29 PM EDT [facility] Triglycerides 128 0 - 150 mg/dL LAB CHEMISTRY METHOD 03/09/2025 7:29 PM EDT [facility] HDL 60 >=40 mg/dL LAB CHEMISTRY METHOD 03/09/2025 7:29 PM EDT [facility] LDL Calculated 66 0 - 100 mg/dL LAB CHEMISTRY METHOD 03/09/2025 7:29 PM EDT [facility] VLDL Cholesterol Glynn 25.6 mg/dL LAB CHEMISTRY METHOD 03/09/2025 7:29 PM EDT [facility] Non HDL Chol. (LDL+VLDL) 92 <145 mg/dL LAB CHEMISTRY METHOD 03/09/2025 7:29 PM EDT [facility] Chol/HDL Ratio 2.5 0.0 - 4.4 LAB CHEMISTRY METHOD 03/09/2025 7:29 PM EDT [facility] Blood Venous blood specimen / Unknown 03/09/2025 03/09/2025 6:36 PM EDT us Alin BARAHONA LAB BLOOD ORDERABLES Final Res ult [facility] [address] [place] [address], * (ABNORMAL) Comprehensive metabolic panel (03/09/2025 12:00 AM EDT) Sodium 131(L) 133 - 145 mmol/L LAB CHEMISTRY METHOD 03/09/2025 7:29 PM [facility] Potassium 4.7 3.5 - 5.5 mmol/L LAB CHEMISTRY METHOD 03/09/2025 7:29 PM [facility] Chloride 96 96 - 110 mmol/L LAB CHEMISTRY METHOD 03/09/2025 7:29 PM [facility] CO2 29 21 - 32 mmol/L LAB CHEMISTRY METHOD 03/09/2025 7:29 PM [facility] Anion Gap 6 3 - 11 LAB CHEMISTRY METHOD 03/09/2025 7:29 PM [facility] Glucose 78 70 - 100 mg/dL LAB CHEMISTRY METHOD 03/09/2025 7:29 PM [facility] BUN 10 5 - 25 mg/dL LAB CHEMISTRY METHOD 03/09/2025 7:29 PM [facility] Creatinine 0.74 0.50 - 1.10 mg/dL LAB CHEMISTRY METHOD 03/09/2025 7:29 PM [facility] eGFR 78 >=60 mL/min/1. 73m2 LAB CHEMISTRY METHOD 03/09/2025 7:29 PM [facility] Comment:Calculation based on the Chronic Kidney Disease Epidemiology Collaboration (CKD-EPI) equation refit without adjustment for race. BUN/Creatinine Ratio 13.5 LAB CHEMISTRY METHOD 03/09/2025 7:29 PM [facility] Calcium 8.9 8.5 - 10.5 mg/dL LAB CHEMISTRY METHOD 03/09/2025 7:29 PM [facility] AST (SGOT) 26 10 - 42 unit/L LAB CHEMISTRY METHOD 03/09/2025 7:29 PM EDT [facility] ALT (SGPT) 24 10 - 60 unit/L LAB CHEMISTRY METHOD 03/09/2025 7:29 PM EDT [facility] Alkaline Phosphatase 89 42 - 121 unit/L LAB CHEMISTRY METHOD 03/09/2025 7:29 PM EDT [facility] Total Protein 6.8 6.0 - 8.0 g/dL LAB CHEMISTRY METHOD 03/09/2025 7:29 PM EDT [facility] Albumin 3.9 3.2 - 5.0 g/dL LAB CHEMISTRY METHOD 03/09/2025 7:29 PM EDT [facility] Total Bilirubin 0.5 0.0 - 1.4 mg/dL LAB CHEMISTRY METHOD 03/09/2025 7:29 PM T [facility] Blood Venous blood specimen / Unknown 03/09/2025 03/09/2025 6:36 PM EDT Alin BARAHONA LAB BLOOD ORDERABLES Final Res ult [facility] [address] [place] [address], documented in this encounter Visit Diagnoses Diagnosis 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 Chronic fatigue, unspecified Encounter for screening for diabetes mellitus documented in this encounter Care Teams Photoengraving Machine Operator/Tender Relationship Specialty Start Date End Date Jameson Patel MD [address] [address] PCP - General 07/23/24 documented as of this encounter
--- OUTSIDE RECORDS SUMMARY | 2025-09-29 13:56 | XMS_ITS | Clinical Summary ---
Author Organization [facility] Address [address] [place] [address] Phone Care Team Providers Care Plastic Injection Mold Maker Name Role Phone Jameson Patel MD Primary Care Provider [phone] Allergies Active Allergy Reactions Criticality Noted Date Comments Aspartame 01/02/2014 Other reaction(s): Hives/Urticaria Metronidazole Hives 03/02/2016 Other Reaction(s): Other (See Comments) Stomach pain and mouth feels picky Mold 09/12/2023 Other reaction(s): Not available Other reaction(s): Not available Fluticasone Propion-Salmeterol Hives,Other 11/04/2024 Gets mouth prickly. Medications acetaminophen 500 mg powder in packet Take 2 tablets by mouth every 8 (eight) hours. Active aspirin 81 mg EC tablet Take 1 tablet (81 mg total) by mouth daily. Active atorvastatin (LIPITOR) 40 mg tablet Take 1 tablet (40 mg total) by mouth. 7 Active cholecalcifero l (VITAMIN D-3) 50 mcg (2,000 unit) tablet Take 1 tablet by mouth daily. 4 Active docusate sodium (COLACE) 100 mg capsule Take 1 capsule (100 mg total) by mouth 2 (two) times a day. Active levothyroxine (SYNTHROID, LEVOTHROID) 100 mcg tablet Take 125 mcg by mouth daily. 3 Active metFORMIN (GLUCOPHAGE) 500 mg tablet Take 1 tablet (500 mg total) by mouth every morning with breakfast. 3 Active albuterol 2.5 mg /3 mL (0.083 %) nebulizer solution USE 1 VIAL VIA NEBULIZER EVERY 6 HOURS NEEDED FOR WHEEZING OR SHORTNESS OF BREATH OR COUGH 360 mL 3 5 Active albuterol HFA (PROAIR HFA ; PROVENTIL HFA ; VENTOLIN HFA) 90 mcg/actuation inhaler USE 2 INHALATIONS BY MOUTH EVERY 4 HOURS NEEDED FOR COUGH OR WHEEZING OR SHORTNESS OF BREATH RESCUE USE ONLY 17 g 9 5 Active fluticasone furoate-vilant Ron (Breo Ellipta) 100-25 mcg/dose inhalerIndicat ions:Pulmonary emphysema ([facility] V24, [facility] V28),Moderate persistent asthma without complication,S moking addiction Inhale 1 puff by mouth 1 (one) time each day. AT THE SAME TIME EACH DAY 60 each 11 5 Active fluticasone furoate (Arnuity Ellipta) 100 mcg/actuation blister with device inhalerIndicat ions:Moderate persistent asthma without complication,S moking addiction,Othe r emphysema ([facility] V24, [facility] V28),Overweigh t (BMI 25.0-29.9) Inhale 1 puff by mouth 1 (one) time each day. 30 each 11 5 09/17/20 26 Active fluticasone propionate (FLONASE) 50 mcg/actuation nasal sprayIndicatio ns:Chronic rhinitis Administer 2 sprays into each nostril 1 (one) time each day. Shake gently. Before first use, prime pump. After use, clean tip and replace cap. 48 g 3 5 09/17/20 26 Active ipratropium (ATROVENT) 21 mcg (0.03 %) nasal sprayIndicatio ns:Chronic rhinitis Administer 2 sprays into each nostril every 12 (twelve) hours. 30 mL 1 5 09/17/20 26 Active fluticasone propionate (FLONASE) 50 mcg/actuation nasal spray spray/apply 2 sprays in each nostril daily. 09/17/20 25 Discontin ued(Reord er) Active Problems Problem Noted Date Diagnosed Date Pulmonary emphysema ([facility] V24, [facility] V28) 0 11/09/2024 Smoking addiction 11/09/2024 Moderate persistent asthma without complication 11/09/2024 Other specified anemias 01/09/2024 Iron deficiency anemia due to chronic blood loss 01/09/2024 Encounters Date Type Department Care Team Description 09/22/2025 Telephone Pulmonology [facility] [address] [phone] Kortney Shearer NP 09/17/2025 10:35 AM EST Office Visit Pulmonology [facility] 175 [facility] [address] [place] [address] Kortney Shearer NP Moderate persistent asthma without complication (Primary Dx); Smoking addiction; Other emphysema (CMS/HCC V24, CMS/HCC V28); Overweight (BMI 25.0-29.9); Chronic rhinitis 08/25/2025 Telephone Pulmonology [facility] [address] [address] Kortney Shearer NP from Last 3 Months Social History Tobacco Use Types Packs/Day Years Used Date Smoking Tobacco: Every Day Cigarettes Tobacco Cessation:Ready to Q uit: Not Asked; Counseling Given: Not Answered Comments:Smoke 10 cigarettes a day Alcohol Use Standard Drinks/Week Comments Never 0 (1 standard drink = 0.6 oz pur e alcohol) Comments Unknown Sex and Gender Information Value Date Recorded Sex Assigned at Female 11/07/2024 10:32 AM EST Legal Sex Female 11:25 AM EST Gender Identity Female 11/07/2024 10:32 AM EST Sexual Orientation Straight 11/07/2024 10 :32 AM EST Obstetrics History Last Filed Vital Signs Vital Sign Reading Time Taken Comments Blood Pressure 120/58 09/17/2025 10:32 AM EST Pulse 84 09/17/2025 10:32 AM EST Temperature 35.8 C (96.5 F) 09/17/2025 10:32 AM EST Respiratory Rate 15 09/17/2025 10:32 AM EST Oxygen Saturation 98% 09/17/2025 10:32 AM EST Inhaled Oxygen Concentration - - Weight 63.5 kg (140 lb) 09/17/2025 10:32 AM EST Height 152.4 cm (5') 09/17/2025 10:32 AM EST Body Mass Index 27.34 09/17/2025 10:32 AM EST Plan of Treatment Upcoming Encounters Date Type Department Care Team (Late st Contact Info) Description 11/17/2025 10:10 AM EST Office Visit Pulmonology - [place] 175 [facility] [address] [place] [phone] Kortney Shearer NP [address] [place] [address] 05/31/2026 11:30 AM EDT Office Visit [facility] Hematology Oncology [address] [place] [phone] Gerber Tamez MD [address] [place] [address] Health Maintenance Due Date Last Done Comments Diabetes: Annual Foot Exam 1945 Diabetes: Annual Retina Eye Exam 1945 Zoster Vaccines (1 of 2) 1987 RSV Immunization Adult Patients (1 - 1-dose 75+ series) 2012 Falls Risk Assessment 09/26/2022 Medicare Annual Wellness Visit 09/26/2022 Social Influencers of Health Screening 09/26/2022 Depression Screening 10/29/2024 COVID-19 Vaccine ( season) 2025 10/17/2022, 11/03/2021, 02/24/2021, Additional history exists Influenza Vaccine (#1) 2025 3, 07/27/2022, 07/30/2021, Additional history exists Diabetes: Blood Sugar Control Test (HGBA1C) 09/09/2025 03/09/2025, 01/06/2025, 03/03/2024 DTaP,Tdap,and Td Vaccines (4 - Td or Tdap) 07/27/2026 07/27/2016, 04/01/2010, 04/01/2010 Osteoporosis Screening (Bone Density Screening) 04/06/2027 04/06/2017 Cholesterol Screening (Lipid Panel) 03/09/2030 03/09/2025, 01/06/2025 Pneumococcal Vaccine: 50+ Years Completed 08/02/2023, 12/31/2007 HIB Vaccines Aged Out No longer eligi [...] on patient's age to complete this topic MMR Vaccines Aged Out No longer eligi ble based on patient's age to complete this topic Meningococcal ACWY Vaccine Aged Out N o longer eligible based on patient's age to complete this topic Meningococcal B Vaccine Aged Out No l onger eligible based on patient's age to complete this topic RSV Immunization Patients Under 20 months Aged Out No longer eligible based on patient's age to complete this topic Varicella Vaccines Aged Out No longer eligible based on patient's age to complete this topic Procedures Procedure Name Priority Date/Time Associated Diagnosis Comments HEMOGLOBIN A1C Routine 03/09/2025 12:00 AM EDT 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 Chronic fatigue, unspecified Encounter for screening for diabetes mellitus LIPID PANEL WITH REFLEX TO DIRECT LDL Routine 03/09/2025 12:00 AM EDT 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 Chronic fatigue, unspecified Encounter for screening for diabetes mellitus DXA BONE DENSITY STUDY 1+ SITS AXIAL SKEL Routine 04/06/2017 2:32 PM EDT Asymptomatic menopausal state from Last 3 Months or Most Recently Relevant to Health Maintenance Results * Lipid panel with reflex to direct LDL (03/09/2025 12:00 AM EDT) Cholesterol 152 0 - 200 mg/dL LAB CHEMISTRY METHOD 03/09/2025 7:29 PM EDT [facility] Triglycerides 128 0 - 150 mg/dL LAB CHEMISTRY METHOD 03/09/2025 7:29 PM EDT [facility] HDL 60 >=40 mg/dL LAB CHEMISTRY METHOD 03/09/2025 7:29 PM EDT [facility] LDL Calculated 66 0 - 100 mg/dL LAB CHEMISTRY METHOD 03/09/2025 7:29 PM EDT [facility] VLDL Cholesterol Glynn 25.6 mg/dL LAB CHEMISTRY METHOD 03/09/2025 7:29 PM EDT [facility] Non HDL Chol. (LDL+VLDL) 92 <145 mg/dL LAB CHEMISTRY METHOD 03/09/2025 7:29 PM EDT [facility] Chol/HDL Ratio 2.5 0.0 - 4.4 LAB CHEMISTRY METHOD 03/09/2025 7:29 PM EDT [facility] Blood Venous blood specimen / Unknown 03/09/2025 03/09/2025 6:36 PM EDT us Alin BARAHONA LAB BLOOD ORDERABLES Final Res ult [facility] [address] [place] [address], [place] [phone] * Hemoglobin A1c (03/09/2025 12:00 AM EDT) Hemoglobin A1C 6.3 <6.5 % LAB CHEMISTRY METHOD 03/09/2025 10:22 PM EDT [facility] Mean Bld Glu Estim. 134 mg/dL LAB CHEMISTRY METHOD 03/09/2025 10:22 PM EDT [facility] Blood Venous blood specimen / Unknown 03/09/2025 03/09/2025 6:36 PM EDT us Alin BARAHONA LAB BLOOD ORDERABLES Final Res ult [facility] [address] [place] [address], [place] [phone] * DXA BONE DENSITY STUDY 1+ SITS AXIAL SKEL (04/06/2017 2:32 PM EDT) Anatomical Region Laterality Modality Bone Densitometr y 03/20/2017 10:4 1 AM EDT Narrative 04/06/2017 5:04 PM EDT BONE DENSITY Lumbar Spine T-score is +0.0 (SD relative to 20-29 y/o adult) Z-score is +2.7 (SD relative to age matched peers) This is normal by criteria defined by the WHO. Left Hip T-score is -1.1 Z-score is +1.2 This is consistent with osteopenia by criteria defined by the WHO. Comparison exam(s): significant decrease in bone density of hip when compared to most recent bone density examination Confidence level is +/-95%. Impression: Based on the World Health Organization criteria, Evangelina Cornejo should be classified as having osteopenia. This patient has a 18% risk of major osteoporotic fracture and a 6.3% risk of hip fracture over the next 10 years. (World Health Organization Fracture Risk Assessment) [facility] Department of Internal Medicine recommends using National Osteoporosis Foundation (NOF) guidelines in treatment decisions related to osteoporosis. NOF guidelines suggest considering treatment for postmenopausal women and men aged 50 or older presenting with the following: History of hip or vertebral fracture. T-score less than or equal to -2.5 (DXA) at the femoral neck, total hip, or spine, after appropriate evaluation to exclude secondary causes. Low bone mass (T-score between -1.0 and -2.5 at the femoral neck or spine) AND a 10-year probability of a hip fracture greater than or equal to 3% OR a 10-year probability of a major osteoporosis-related fracture greater than or equal to 20% based on the [place]-adapted WHO algorithm Please note that all treatment decisions require clinical judgment and consideration of individual patient factors, including patient preferences, co-morbidities, previous drug use, risk factors not captured in the FRAX model (e.g., frailty, falls, vitamin D deficiency, increased bone turnover, interval significant decline in bone density) and possible under- or over-estimation of fracture risk by FRAX. Procedure Note Odette Márquez MD - 2023 BONE DENSITY Lumbar Spine T-score is +0.0 (SD relative to 20-29 y/o adult) Z-score is +2.7 (SD relative to age matched peers) This is normal by criteria defined by the WHO. Left Hip T-score is -1.1 Z-score is +1.2 This is consistent with osteopenia by criteria defined by the WHO. Comparison exam(s): significant decrease in bone density of hip whencompared to most recent bone density examination Confidence level is +/-95%. Impression: Based on the World Health Organization criteria, Evangelina Cornejo should beclassified as having osteopenia. This patient has a 18% risk of majorosteoporotic fracture and a 6.3% risk of hip fracture over the next 10years. (World Health Organization Fracture Risk Assessment) [facility] Department of Internal Medicine recommendsusing National Osteoporosis Foundation (NOF) guidelines in treatmentdecisions related to osteoporosis. NOF guidelines suggest consideringtreatment for postmenopausal women and men aged 50 or older presentingwith the following: History of hip or vertebral fracture. T-score less than or equal to -2.5 (DXA) at the femoral neck, total hip,or spine, after appropriate evaluation to exclude secondary causes. Low bone mass (T-score between -1.0 and -2.5 at the femoral neck or spine)AND a 10-year probability of a hip fracture greater than or equal to 3% ORa 10-year probability of a major osteoporosis-related fracture greaterthan or equal to 20% based on the [place]-adapted WHO algorithm Please note that all treatment decisions require clinical judgment andconsideration of individual patient factors, including patientpreferences, co-morbidities, previous drug use, risk factors not capturedin the FRAX model (e.g., frailty, falls, vitamin D deficiency, increasedbone turnover, interval significant decline in bone density) and possibleunder- or over-estimation of fracture risk by FRAX. Ana Forbes MD IM DXA PROCEDURES Final Result from Last 3 Months or Most Recently Relevant to Health Maintenance Insurance [employer] MEDICARE [place]ICAID [place] Advance Directives Documents on File Type Date Recorded Patient Protective Signal Repairer Expl anation Health Care Decision (hx) 11/05/2020 AD DOMINGUEZ DIRECTIVE Health Care Decision (hx) 11/05/2020 AD DOMINGUEZ DIRECTIVE Health Care Decision (hx) 11/05/2020 AD DOMINGUEZ DIRECTIVE Health Care Decision (hx) 11/05/2020 AD DOMINGUEZ DIRECTIVE Health Care Decision (hx) 11/05/2020 AD DOMINGUEZ DIRECTIVE Health Care Decision (hx) 11/05/2020 AD DOMINGUEZ DIRECTIVE Health Care Decision (hx) 11/05/2020 AD DOMINGUEZ DIRECTIVE Health Care Decision (hx) 11/05/2020 AD DOMINGUEZ DIRECTIVE Health Care Decision (hx) 11/02/2020 AD DOMINGUEZ DIRECTIVE Health Care Decision (hx) 11/02/2020 AD DOMINGUEZ DIRECTIVE Health Care Decision (hx) 11/02/2020 AD DOMINGUEZ DIRECTIVE Health Care Decision (hx) 11/02/2020 AD DOMINGUEZ DIRECTIVE Health Care Decision (hx) 11/02/2020 AD DOMINGUEZ DIRECTIVE Health Care Decision (hx) 11/02/2020 AD DOMINGUEZ DIRECTIVE Health Care Decision (hx) 11/02/2020 AD DOMINGUEZ DIRECTIVE Health Care Decision (hx) 11/02/2020 AD DOMINGUEZ DIRECTIVE Health Care Decision (hx) 06/26/2018 AD DOMINGUEZ DIRECTIVE Health Care Decision (hx) 06/26/2018 AD DOMINGUEZ DIRECTIVE Health Care Decision (hx) 06/26/2018 AD DOMINGUEZ DIRECTIVE Health Care Decision (hx) 06/26/2018 AD DOMINGUEZ DIRECTIVE Health Care Decision (hx) 06/26/2018 AD DOMINGUEZ DIRECTIVE Health Care Decision (hx) 06/26/2018 AD DOMINGUEZ DIRECTIVE Health Care Decision (hx) 06/26/2018 AD DOMINGUEZ DIRECTIVE Health Care Decision (hx) 06/26/2018 AD DOMINGUEZ DIRECTIVE Care Teams Plastic Injection Mold Maker Relationship Specialty Start Date End Date Jameson Patel MD [address] [place] [id number] PCP - General 07/23/24
--- OUTSIDE RECORDS SUMMARY | 2025-09-29 13:56 | XMS_ITS | Encounter Summary ---
Author Organization [facility] Address [address] [place] [address] Care Team Providers Care Advertising Dispatch Clerk Name Role Phone Unavailable Primary Care Provider Unavailabl e Reason for Visit * Reason Onset Date Comments chart prep 09/28/2025 Encounter Details Date Type Department Care Team ([facility] st Contact Info) Description 09/28/2025 Telephone [facility] MED & PEDS [address] [place] [phone] Jayy Anni HI chart prep Social History Tobacco Use Types Packs/Day Years Used Date Smoking Tobacco: Never Assessed Depression Answer Date Recorded Patient Health Questionnaire-9 [...] Access Q2 Not on file 09/29/2025 Comments Unknown Sex and Gender Information Value Date Recorded Sex Assigned at Female 08/28/2022 10:39 AM EDT Legal Sex Female 10:39 AM EDT Gender Identity Choose not to disclose 10:39 AM EDT Sexual Orientation Choose not to disclose 2021 10:39 AM EDT documented as of this encounter Miscellaneous Notes * Telephone Encounter - Anni Hope MA - 09/28/2025 10:12 AM EST Chart Prep Labs: not applicable Images: not applicable Referrals: not applicable Vaccines due: Covid, Flu, RSV, and Zoster Screenings: not applicable Overdue care gaps: SBIRT, SDOH, PHQ-9, MILADIS-7, and Tobacco documented in this encounter Plan of Treatment Not on file documented as of this encounter Goals Goal [...] Patient has chronic kidney disease No Anni oHpe MA Patient has diabetic eye disease Care [...] Hope [place] documented as of this encounter Visit Diagnoses Not on filedocumented in this encounter Additional Health Concerns Active [...] 09/28/2025 Patient has chronic kidney disease 09/28/2025 documented as of this encounter
--- OUTSIDE RECORDS SUMMARY | 2025-09-29 13:56 | XMS_ITS | Clinical Summary ---
Author Organization [facility] Address [address] [place] [id number] Care Team Providers Care Web Applications Architect Name Role Phone Unavailable Primary Care Provider Unavailabl e Allergies Active Allergy Reactions Criticality Noted Date Comments Aspartame 01/02/2014 Other reaction(s): Hives/Urticaria Metronidazole Hives,Other (See Comments) 03/02/2016 Stomach pain and mouth feels picky Molds & Smuts 09/12/2023 Other reaction(s): Not available Other reaction(s): Not available Medications Medication Sig Dispensed Refills Start Date End Date Status albuterol (PROVENTIL) (2.5 MG/3ML) 0.083% nebulizer solution USE 1 VIAL VIA NEBULIZER EVERY 6 HOURS NEEDED FOR WHEEZING OR SHORTNESS OF BREATH OR COUGH 0 11/05/2023 Active atorvastatin (LIPITOR) tablet 40 mg Take 1 tablet (40 mg total) by mouth. 0 08/15/2017 Active Cholecalciferol (Vitamin D3) 50 MCG (2000 UT) TABS Take 1 tablet by mouth daily. 0 10/31/2023 Active doxycycline (VIBRAMYCIN) 100 MG capsule Take 1 capsule (100 mg total) by mouth 2 (two) times a day. 0 09/19/2023 Active fluticasone-salmetero l (Advair Diskus) 250-50 MCG/ACT AEPB INHALE 1 PUFF INTO THE LUNGS TWICE DAILY 0 09/22/2023 Active levothyroxine (SYNTHROID) tablet 100 mcg Take 125 mcg by mouth daily. 0 09/16/2023 Active metFORMIN (GLUCOPHAGE) tablet 500 mg Take 1 tablet (500 mg total) by mouth every morning with breakfast. 0 09/27/2023 Active varenicline (CHANTIX) 0.5 MG tablet TAKE 1 TABLET BY MOUTH ONCE DAILY FOR 3 DAYS THEN 1 TABLET TWICE DAILY FOR 4 DAYS 0 09/12/2023 Active docusate sodium (COLACE) 100 MG capsule Take 1 capsule (100 mg total) by mouth 2 (two) times a day. 0 Active Acetaminophen 500 MG PACK Take 2 tablets by mouth every 8 (eight) hours. 0 Active aspirin EC 81 MG tablet Take 1 tablet (81 mg total) by mouth daily. 0 Active omeprazole (PriLOSEC) 20 MG capsule Take 1 capsule (20 mg total) by mouth daily. 0 Active fluticasone (FLONASE) 50 MCG/ACT nasal spray spray/apply 2 sprays in each nostril daily. 0 Active Active Problems Problem Noted Date Diagnosed Date Other specified anemias 01/09/2024 Iron deficiency anemia due to chronic blood loss 01/09/2024 Social History Tobacco Use Types Packs/Day Years Used Date Smoking Tobacco: Never Assessed Sex and Gender Information Value Date Recorded Sex Assigned at Not on file Gender Identity Not on file Sexual Orientation Not on file Job Start Date Occupation Industry Not on file Not on file Not on file Last Filed Vital Signs Vital Sign Reading Time Taken Comments Blood Pressure 174/56 05/07/2024 1:01 PM EDT Pulse 81 05/07/2024 1:01 PM EDT Temperature 36.7 C (98.1 F) 05/07/2024 1:01 PM EDT Respiratory Rate 18 01/24/2024 1:36 PM EDT Oxygen Saturation 99% 05/07/2024 1:01 PM EDT Inhaled Oxygen Concentration - - Weight 63.5 kg (140 lb) 05/07/2024 1:01 PM EDT Height 152.4 cm (5') 03/13/2024 1:09 PM EDT Body Mass Index 27.34 03/13/2024 1:09 PM EDT Plan of Treatment Health Maintenance Due Date Last Done Comments Depression Screening 1949 Preventative Health Evaluation 1955 Shingrix-Zoster Vaccine (1 of 2) 1987 Fall Risk Assessment 2002 Osteoporosis Screening (DEXA Scan) 2002 RSV Adult > 60+ Yrs or (1 - 1-dose 75+ series) 2012 COVID-19 Vaccine ( season) 2025 11/03/2021, 02/24/2021, 02/03/2021 Influenza Vaccine (#1) 2025 2, 07/30/2021, 07/20/2020, Additional history exists DTap / Tdap / Td (2 - Td or Tdap) 07/27/2026 07/27/2016 Pneumococcal Vaccine Completed 08/02/2023, 12/31/19 08 Hepatitis B Vaccines Aged Out No long er eligible based on patient's age to complete this topic RSV Ped < 20 months Aged Out No longe r eligible based on patient's age to complete this topic Aisha Cornejo Personal/Family Self 1935 [address] [place] [address]
--- OUTSIDE RECORDS SUMMARY | 2025-09-29 13:56 | XMS_ITS | Encounter Summary ---
Author Organization [facility] Address [address] [place] [address] Care Team Providers Care Business Intelligence Etl Developer Name Role Phone Liz Trimble FORREST Primary Care Provider [phone] Encounter Details Date Type Department Care Team (Latest Contact Info) Description 09/29/2025 Travel Social History Tobacco Use Types Packs/Day Years Used Date Smoking Tobacco: Never Smokeless Tobacco: Never Depression Answer Date Recorded Patient Health Questionnaire-9 [...] AM EDT documented as of this encounter Functional Status * Over the [...] Not difficult at all 09/29/2025 11:44 AM Anni Vásquez MA documented as of this encounter Plan of Treatment Not on [...] documented as of this encounter Care Teams Business Intelligence Etl Developer Relationship Specialty Start Date End Date Liz Trimble CNP [address] [place] [address] PCP - General Family Medicine 09/29/25 documented as of this encounter
[2025-09-29 14:49] LABS: MANUAL DIFF FLAG NO
[2025-09-29 14:55] LABS: Hematocrit 37.2 % (37.0-47.0); Hemoglobin 12.3 g/dl (12.0-16.0); Imm Gran Abs Auto 0.02 X10*3/uL (0.00-0.03); Imm Gran Pct Auto 0.3 % (0.0-0.4); Lymphocytes Absolute Auto 1.4 X10*3/uL (1.2-4.9); Mean Corpuscular HGB Conc 33.1 g/dl (31.0-35.0); Mean Corpuscular Hemoglobin 28.8 pg (27.0-33.0); Mean Corpuscular Volume 87.1 fL (80.0-98.0); NRBC Abs Auto 0.000 X10*3/uL (0.0-0.012); NRBC Pct Auto 0.0 /100WBC (0.0-0.2); Platelet Count 287 X10*3/uL (160-400); Red Blood Count 4.27 X10*6/uL (4.20-5.50); White Blood Count 7.8 X10*3/uL (4.8-10.8)
[2025-09-29 15:16] LABS: Alanine Aminotransferase 15 U/L (0-31); Albumin Level 4.4 g/dL (3.5-5.0); Alkaline Phosphatase 97 U/L (39-117); Anion Gap 14 (12-20); Aspartate Amino Transferase 24 U/L (5-31); Blood Urea Nitrogen 18 mg/dL (9-16); Calcium 9.3 mg/dL (8.4-10.2); Carbon Dioxide 24 mmol/L (22-29); Chloride 101 mmol/L (96-108); Cholesterol 149 mg/dL (<200); Estimated Glomerular Filt Rate > 60; HDL Cholesterol 54 mg/dL (>40); Potassium 4.3 mmol/L (3.3-5.1); Sodium 135 mmol/L (135-145); Total Protein 6.9 g/dL (6.5-8.0); Triglycerides 111 mg/dL (<150)
[2025-09-29 15:24] LABS: Microalbum/Creatinine Ratio Ur 44.4 ug/mg cr (<30)
== END 2025-09-29 11:41 | disposition home or self-care (01) ==
LOC: HO.CHCLDS 11:40
DX: E11.3299 Type 2 diabetes mellitus with mild nonproliferative diabetic retinopathy without macular edema, unspecified eye (principal); Z13.1 Encounter for screening for diabetes mellitus
CPT/HCPCS: 36415; 80053; 80061; 82043; 82570; 83036; 85025